=== PATIENT | male | born 1975 ===

== ENCOUNTER → 2020-03-20 | Outpatient (CLI) | payer OTHER | END | disposition home or self-care (01) | LOC: PPH VACUNA 09:00 | DX: Z23 Encounter for immunization (principal) ==

== ENCOUNTER 2020-06-10 12:45 | Outpatient (CLI) | payer OTHER | END 2020-06-10 15:00 | disposition home or self-care (01) | LOC: PPH VACUNA 12:45 | DX: Z23 Encounter for immunization (principal) ==

== ENCOUNTER 2020-08-07 08:51 | Outpatient (CLI) | payer OTHER | END 2020-08-07 15:00 | disposition home or self-care (01) | LOC: LAB 08:51 | PROVIDERS: ATTEND Colon & Rectal Surgery | DX: Z03.818 Encounter for observation for suspected exposure to other biological agents ruled out (principal) ==

== ENCOUNTER 2020-11-19 08:42 | Outpatient (CLI) | payer OTHER | END 2020-11-19 15:00 | disposition home or self-care (01) | LOC: LAB 08:42 | PROVIDERS: ATTEND Colon & Rectal Surgery | DX: Z03.818 Encounter for observation for suspected exposure to other biological agents ruled out (principal) ==

== ENCOUNTER 2021-03-24 10:30 | Outpatient (CLI) | payer OTHER | END 2021-03-24 11:30 | disposition home or self-care (01) | LOC: PPH VACUNA 10:30 | PROVIDERS: ATTEND Emergency Medicine Pediatric Emergency Medicine | DX: Z23 Encounter for immunization (principal) ==

== ENCOUNTER 2025-06-17 05:35 | Day surgery (SDC) | payer OTHER ==
[2025-06-11 10:32] LABS: BASO % 0.4 % (0.1-1.2); EOS # 0.38 (0.04-0.54); EOS % 7.7 % (0.7-7.0); LYMPH # 0.92 (1.18-3.74); LYMPH % 18.5 % (19.3-53.1); MEAN PLATELET VOLUME 8.80 fl (9.4-12.4); MONO # 0.44 (0.24-0.82); MONO % 8.9 % (4.7-12.5); NEUT # 3.19 (1.56-6.13); NEUT % 64.3 % (34.0-71.1); RED CELL DISTRIBUTION WIDTH 13.5 % (11.6-14.4)
[2025-06-11 10:45] LABS: URINE APPEARANCE Clear; URINE BILIRRUBIN Negative (NEGATIVE); URINE BLOOD Negative; URINE COLOR Yellow; URINE GLUCOSE Negative (NEGATIVE); URINE KETONE Trace (NEGATIVE); URINE LEUKOCYTE Trace; URINE NITRATE Negative; URINE PROTEIN Trace (NEGATIVE); URINE UROBILINOGEN 0.2 E.U./dl
[2025-06-11 10:48] LABS: URINE BACTERIA 20.5 uL (0.0-1933); URINE EPITHELIAL CELLS 1.8 uL (0.0-38.8); URINE WBC 3.8 uL (0.0-23.2)
[2025-06-11 11:04] LABS: INR 0.99
[2025-06-11 11:42] LABS: URINE CAST 0.28 uL (0.0-1.40); URINE RBC 1.9 uL (0.0-20.8)
[2025-06-11 11:51] LABS: ALT/SGPT 61.0 U/L (12-78); AST/SGOT 43.0 U/L (15-37); BILIRUBIN TOTAL 0.75 mg/dL (0.3-1.2); BILIRUBIN,CONJUGATED 0.2 mg/dL (0.0-0.2); BUN CREA RATIO 39.0 (7.0-25.0); CREATININE SERUM 0.98 mg/dL (0.70-1.30); GFR 81.63; GLUCOSE FASTING 102.0 mg/dL (65-100); OSMOLALITY SERUM 289.0 MOSM/KG (275-295)
[~2025-06-17 05:35] MED LIST: CYTOMEL50 MCG; IRBESARTAN-HCT1 EAC1 PO
[2025-06-17] MEDS ORDERED: CHLORHEXIDINE GLUCONATE 120 ML BOTTLE TOP ONE (05:36)
[2025-06-17] MEDS ORDERED: BUPIVACAINE HCL/MPF 0.5% 30ML VIAL ONE (05:36)
[2025-06-17] MEDS ORDERED: METRONIDAZOLE/SODIUM CHLORIDE 500 MG/100 ML PIGGYBACK IV ONE (05:50)
[2025-06-17] MEDS ORDERED: CEFTRIAXONE SODIUM 2,000 MG VIAL ONE (05:50)
[2025-06-17] MEDS ORDERED: ENOXAPARIN SODIUM 40 MG/0.4 ML SYRINGE SUBCUTANEO ONE (05:50)
[2025-06-17] MEDS ORDERED: DEXAMETHASONE SODIUM PHOSP/PF 10 MG/ML VIAL ONE (06:14)
[2025-06-17] MEDS ORDERED: SUGAMMADEX SODIUM 200 MG/2 ML VIAL IV ONE (06:14)
[2025-06-17] MEDS ORDERED: KETOROLAC TROMETHAMINE 30 MG VIAL ONE (08:32)
[2025-06-17] MEDS ORDERED: POLY119PG PO (09:55)
[2025-06-17] MEDS ORDERED: NEURONTIN300 MG PO (09:55)
[2025-06-17] MEDS ORDERED: PERCOCET 5-3251 EACH PO (09:55)
[2025-06-17] MEDS ORDERED: CELEBREX200MG PO (09:55)
== END 2025-06-17 12:55 | disposition home or self-care (01) ==
LOC: CIR.AMB 05:35
PROVIDERS: ATTEND Surgery
DX: K40.90 Unilateral inguinal hernia, without obstruction or gangrene, not specified as recurrent (principal); K42.0 Umbilical hernia with obstruction, without gangrene
CPT/HCPCS: 49650; C1781